=== PATIENT | male | born 1960 | race African-American/Black ===

== ENCOUNTER 2020-05-13 14:22 | Emergency (ER) | payer OTHER, SELFPAY ==
[2020-05-13 15:24] LABS: #Basophils 0.1 thou/uL (0.0-0.2); #Eosinphils 0.3 thou/uL (0.0-0.7); #Lymphocytes 1.8 thou/uL (1.20-3.40); #Monocytes 0.5 thou/uL (0.11-0.59); %Basophils 1.2 % (0.0-1.0); %Eosinophils 6.4 % (0.0-10.0); %Lymphocytes 37.9 % (21.0-51.0); %Monocytes 11.3 % (0.0-10.0); %Neutrophils 43.2 % (42.0-75.0); Hemoglobin 15.6 g/dL (14.0-18.0); Mean Corpuscular HGB CONC 32.4 g/dL (32.0-36.0); Mean Corpuscular Volume 92.6 fL (78.0-98.0); Mean Platelet Volume 8.4 fL (7.4-10.4); Platelet Count 177 thou/uL (130-400); RBC Distribution Width 11.3 % (11.5-14.5); Red Blood Cell (RBC) Count 5.21 mill/uL (4.70-6.10); White Blood Cell (WBC) Count 4.7 thou/uL (4.8-10.8)
[2020-05-13 15:43] LABS: ALT (SGPT) 16 U/L (8-55); AST (SGOT) 17 U/L (5-34); Albumin 4.3 g/dL (3.5-5.0); Alkaline Phosphatase 82 U/L (40-110); Anion Gap 14 mmol/L (10-20); BUN (Urea Nitrogen) 17 mg/dL (8.4-25.7); Bilirubin, Total 0.5 mg/dL (0.2-1.2); CK (CPK) 158 U/L (30-200); Calc. Creatinine Clearance 0 mL/min (70-130); Calcium 8.8 mg/dL (7.8-10.44); Carbon Dioxide 22 mmol/L (22-29); Chloride 107 mmol/L (98-107); Estimated GFR-MDRD 77; Globulin 3.1 g/dL (2.4-3.5); Glucose 146 mg/dL (70-105); Potassium 3.5 mmol/L (3.5-5.1); Protein, Total 7.4 g/dL (6.0-8.3); Sodium 139 mmol/L (136-145)
--- NOTE | 2020-05-13 15:53 | RAD ---
PA AND LATERAL OF THE CHEST: 05/13/20 INDICATION: Cough and runny nose. COMPARISON: None. FINDINGS: The lungs are clear. Heart size is normal. No pleural effusion or pneumothorax is evident. No acute o sseous abnormality is noted. No pneumothorax is demonstrated. IMPRESSION: No acute cardiopulmonary abnormality. POS: [facility]
[2020-05-15 12:16] LABS: SARS-CoV-2 N Gene Negative; SARS-CoV-2 by NAA Not Detected (NotDetected); SARS-CoV-2 orf1ab Negative
[2020-05-15 12:17] LABS: SARS-CoV-2 MS2 Positive; SARS-CoV-2 S Gene Negative
== END 2020-05-13 16:06 | disposition home or self-care (01) ==
LOC: NAV ERS 14:22
DX: R07.89 Other chest pain (principal); R05 Cough; Z20.828 Contact with and (suspected) exposure to other viral communicable diseases; I10 Essential (primary) hypertension; Z79.899 Other long term (current) drug therapy
CPT/HCPCS: 71046; 80053; 82550; 84484; 85025; 87635; 93005; 94760; U0003

== ENCOUNTER 2024-03-15 20:01 | Emergency (ER) | payer OTHER, SELFPAY ==
[2024-03-15] MEDS ORDERED: cloNIDine 0.2 MG TAB ONE (20:39)
[2024-03-15] MEDS ORDERED: Amoxicillin/Potassium Clav 875 MG TAB ONE (21:13)
[2024-03-15] MEDS ORDERED: Ketorolac Tromethamine 60 MG/2 ML VIAL ONE (21:13)
== END 2024-03-15 21:53 | disposition home or self-care (01) ==
LOC: NAV ERS 20:01
DX: K04.7 Periapical abscess without sinus (principal); I10 Essential (primary) hypertension
CPT/HCPCS: 96372; 99282; J1885